=== PATIENT | female | born 1990 | race Caucasian/White ===

== ENCOUNTER 2022-09-23 11:21 | Emergency (ER) | payer OTHER ==
--- OUTSIDE RECORDS SUMMARY | 2022-09-23 11:30 | XMS REPORT | Continuity of Care Document ---
:1990 Author Organization [facility] t Address [address] [place] [address] Care Team Providers Name Role Phone Maria Dolores Rodriges Attending Clinician Unavailable Problems Condition Condition Condition Status Onset Resolution Last Treating Co mments Source Name Details Category Date Date Treatment Clinician Date [id number] Migraine Problem Comm on without Spirit aura and - [facility] migrainosu Medica l s, not Center intractabl e [id number] Reactive Problem Commo n depression [facility] [id number] Acquired Problem Comm on hypothyroi Spirit dism [facility] [id number] Pain in Problem Common left hip [facility] [id number] Positive Problem Comm on ANKUR Spirit [facility]in[facility] [id number] Fatigue, Problem Commo n unspecifie Spirit d type - [facility] [id number] Anxiety Problem [facility] [id number] Temperatur Problem Co mmon e Spirit intoleranc - [facility] e [facility] Allergies, Adverse Reactions, Alerts This patient has no known allergies or adverse reactions. Social History Social Habit Start Date Stop Date Quantity Comments Source History of Tobacco Use Co mmon Spirit [facility] Sex Assigned At Com mon [facility] Smoking Status Start Date Stop Date Source Never Smoker [facility] Current Smoker 2022-07-30 00:00:00 Common Spiri t - [facility] Medications Ordered Filled Start Stop Current Ordering Indication Dosage Frequency Signature Comments Components Source Medication Medication Date Date Medication? Clinician (SIG) Name Name REGISTERED HEALTH NURSE Thyroid REGISTERED HEALTH NURSE Thyroid No 1{table QD REGISTERED HEALTH NURSE Thyroid 15 MG 15 MG 209 t_on_an 15 MG 00:00: _empty_ 00 stomach } Levothyroxi Levothyroxi No QD Levothyrox ne Sodium ne Sodium 2-03 ine Sodium 25 MCG 25 MCG 00:00: 25 MCG 00 Levothyroxi Levothyroxi No QD Levothyrox ne Sodium ne Sodium 2-03 ine Sodium 25 MCG 25 MCG 00:00: 25 MCG 00 No Known No Known No Common Medications Medications [facility] Vital Signs Vital Name Observation Time Observation Value Comments Source height 2022-08-14 10:00:00 61.5 [in_i] [facility] weight 2022-08-14 10:00:00 137.2 [lb_av] [facility] temperature 2022-08-14 10:00:00 98.1 [degF] [facility] bmi 2022-08-14 10:00:00 25.5 kg/m2 [facility] oximetry 2022-08-14 10:00:00 100 % [facility] respiratory rate 2022-08-14 10:00:00 15 /min Comm on [facility] blood pressure 2022-08-14 10:00:00 120 mm[Hg] [facility] - systolic [facility] blood pressure 2022-08-14 10:00:00 64 mm[Hg] [facility] diastolic [facility] height 2022-07-30 09:00:00 61.5 [in_i] [facility] weight 2022-07-30 09:00:00 137 [lb_av] [facility] temperature 2022-07-30 09:00:00 97.2 [degF] [facility] bmi 2022-07-30 09:00:00 25.46 kg/m2 [facility] oximetry 2022-07-30 09:00:00 99 % Common S pirit [facility] respiratory rate 2022-07-30 09:00:00 16 /min Comm on [facility] blood pressure 2022-07-30 09:00:00 114 mm[Hg] Common [facility] - systolic [facility] blood pressure 2022-07-30 09:00:00 67 mm[Hg] Common [facility] - diastolic [facility] Procedures This patient has no known procedures. Encounters Start End Encounter Admission Attending Care Care Encounter Source Date/Time Date/Time Type Type Clinicians Facility Department ID 2022-09-11 Outpatient Antelmo, STLMLC STLMLC [id number] Common 10:46:02 Maria Dolores [id number] [facility] 2022-08-11 Outpatient Antelmo, STLMLC STLMLC [id number] Common 13:15:02 Maria Dolores [id number] [facility] 2022-07-30 Outpatient Antelmo, STMAYRALC STLMLC [id number] Common 08:15:03 Maria Dolores [id number] [facility] 2022-08-14 2022-08-14 OFFICE STLMLC STLMLC [id number] Co mmon 00:00:00 00:00:00 VISIT [facility] ESTAB PT - [facility] LEVEL 3 [facility] 2022-08-07 2022-08-07 (TEL) STLMLC STLMLC [id number] Co mmon 00:00:00 00:00:00 [facility] 2022-07-30 2022-07-30 OFFICE STLMLC STLMLC [id number] Co mmon 00:00:00 00:00:00 VISIT [facility] PT LEVEL 4 [facility] Results This patient has no known results.
--- NOTE | 2022-09-23 11:57 | EDPHYS ---
Physician Documentation [facility] Name: Melody Edward Age: 31 yrs Sex: Female : 1990 Arrival Date: 09/23/2022 Time: 11:24 Bed Treatment Private MD: ELIZABETH Physician Phu Butler HPI: 09/23 11:50 This 31 yrs old Female presents to ER via Unassigned with complaints of manuel Cough, Ear Pain, Sore Throat. 11:50 The patient or guardian reports cough, that is intermittent. Onset: The manuel symptoms/episode began/occurred 3 day(s) ago. Severity of symptoms: At their worst the symptoms were mild, in the emergency department the symptoms are unchanged. Modifying factors: The symptoms are alleviated by nothing, the symptoms are aggravated by nothing. The patient has experienced similar episodes in the past, a few times. - Family history:: not pertinent. ROS: 11:51 Constitutional: Negative for fever, chills, and weight loss, Eyes: Negative for injury, manuel pain, redness, and discharge, Neck: Negative for injury, pain, and swelling, Cardiovascular: Negative for chest pain, palpitations, and edema, Abdomen/GI: Negative for abdominal pain, nausea, vomiting, diarrhea, and constipation, Back: Negative for injury and pain, : Negative for injury, bleeding, discharge, and swelling, MS/Extremity: Negative for injury and deformity, Skin: Negative for injury, rash, and discoloration, Neuro: Negative for headache, weakness, numbness, tingling, and seizure, Psych: Negative for depression, anxiety, suicide ideation, homicidal ideation, and hallucinations, Allergy/Immunology: Negative for hives, rash, and allergies, Endocrine: Negative for neck swelling, polydipsia, polyuria, polyphagia, and marked weight changes, Hematologic/Lymphatic: Negative for swollen nodes, abnormal bleeding, and unusual bruising. 11:51 ENT: Positive for sore throat. 11:51 Respiratory: Positive for cough, with green sputum. Exam: 11:51 Constitutional: This is a well developed, well nourished patient who is awake, alert, manuel and in no acute distress. Head/Face: Normocephalic, atraumatic. Eyes: Pupils equal round and reactive to light, extra-ocular motions intact. Lids and lashes normal. Conjunctiva and sclera are non-icteric and not injected. Cornea within normal limits. Periorbital areas with no swelling, redness, or edema. Neck: Trachea midline, no thyromegaly or masses palpated, and no cervical lymphadenopathy. Supple, full range of motion without nuchal rigidity, or vertebral point tenderness. No Meningismus. Chest/axilla: Normal chest wall appearance and motion. Nontender with no deformity. No lesions are appreciated. Cardiovascular: Regular rate and rhythm with a normal S1 and S2. No gallops, murmurs, or rubs. Normal PMI, no JVD. No pulse deficits. Respiratory: Lungs have equal breath sounds bilaterally, clear to auscultation and percussion. No rales, rhonchi or wheezes noted. No increased work of breathing, no retractions or nasal flaring. Abdomen/GI: Soft, non-tender, with normal bowel sounds. No distension or tympany. No guarding or rebound. No evidence of tenderness throughout. Back: No spinal tenderness. No costovertebral tenderness. Full range of motion. MS/ Extremity: Pulses equal, no cyanosis. Neurovascular intact. Full, normal range of motion. Neuro: Awake and alert, GCS 15, oriented to person, place, time, and situation. Cranial nerves II-XII grossly intact. Motor strength 5/5 in all extremities. Sensory grossly intact. Cerebellar exam normal. Normal gait. Psych: Awake, alert, with orientation to person, place and time. Behavior, mood, and affect are within normal limits. 11:51 ENT: Posterior pharynx: Airway: normal, no evidence of obstruction, Tonsils: are normal in appearance, Uvula: normal, swelling, is not appreciated, erythema, is not appreciated, exudate, is not appreciated, peritonsillar mass, is not appreciated, pooling of secretions, is not appreciated. Vital Signs: 12:27 BP 126 / 79; Pulse 89; Resp 16; Temp 98.1; Pulse Ox 98% on R/A; iw MDM: 11:31 Patient medically screened. [facility] 11:51 Differential diagnosis: bronchitis, influenza, laryngitis, pharyngitis, tonsillitis, amnuel upper respiratory infection. Differential Diagnosis: Bronchitis Influenza Upper Respiratory Infection Pharyngitis Otitis Media Allergic Rhinitis Viral Syndrome Pneumonia. Data reviewed: vital signs, nurses notes, lab test result(s). Consideration of Admission/Observation Escalation of care including admission/observation considered. I considered the following discharge prescriptions or medication management in the emergency department Medications were administered in the Emergency Department. See MAR. Counseling: I had a detailed discussion with the patient and/or guardian regarding: the historical points, exam findings, and any diagnostic results supporting the discharge/admit diagnosis, lab results, the need for outpatient follow up, for definitive care, a family practitioner. 09/23 11:50 Order name: COVID-19/FLU A+B manuel 09/23 12:13 Order name: Strep iw Administered Medications: 12:27 Drug: AZITHromycin PO 500 mg Route: PO; iw 12:27 Drug: predniSONE PO 40 mg Route: PO; iw Disposition Summary: 09/23/22 11:56 Discharge Ordered Location: Home manuel Problem: new manuel Symptoms: have improved manuel Condition: Stable manuel Diagnosis - Acute pharyngitis, unspecified manuel - Acute upper respiratory infection, unspecified manuel Followup: manuel - With: Private Physician - When: 2 - 3 days - Reason: Recheck today's complaints, Continuance of care, Re-evaluation by your physician Discharge Instructions: - Discharge Summary Sheet manuel - Sore Throat manuel - Upper Respiratory Infection, Adult manuel - Cool Mist Vaporizer manuel - Upper Respiratory Infection, Adult, Twua-iq-Iovo manuel - Cough, Adult manuel Forms: - Medication Reconciliation Form manuel - Thank You Letter manuel - Antibiotic Education manuel - Prescription Opioid Use manuel Prescriptions: - albuterol sulfate 90 mcg/actuation Inhalation HFA Aerosol Inhaler - inhale 2 puff by INHALATION route every 4-6 hours as needed for bronchospasm; manuel administer via ventilator; 1 unit; Refills: 0, Product Selection Permitted - Uma-D 12 Hour 60-120 mg Oral Tablet Sustained Release 12 hr - take 1 tablet by ORAL route every 12 hours As needed; 20 tablet; Refills: 0, manuel Product Selection Permitted - Zithromax Z-Rashel 250 mg Oral Tablet - take 1 tablet by ORAL route as directed for 5 days Day 1 - take two (2) tablets manuel one time. Day 2, 3, 4 , 5 take one (1) tablet once daily.; 6 tablet; Refills: 0, Product Selection Permitted - Medrol (Rashel) 4 mg Oral Tablets, Dose Pack - take 1 tablet by ORAL route as directed - follow package instructions; 1 manuel packet; Refills: 0, Product Selection Permitted Signatures: Dispatcher [employer] Phu Ying MD MD cha Williams, Irene RN RN iw
[2022-09-23] MEDS ORDERED: predniSONE 20 MG TAB ONE (12:28)
[2022-09-23] MEDS ORDERED: AZITHROMYCIN 250 MG TAB ONE (12:28)
--- NOTE | 2022-09-23 12:28 | ER ---
Nurse's Notes [facility] Name: Melody Edward Age: 31 yrs Sex: Female : 1990 Arrival Date: 09/23/2022 Time: 11:24 Bed Treatment Private MD: Diagnosis: Acute pharyngitis, unspecified;Acute upper respiratory infection, unspecified Presentation: 09/23 12:27 Acuity: LENA 4 iw 12:27 Chief complaint: Patient states: cough, congestion X 3 days. Coronavirus screen: Client iw presents with at least one sign or symptom that may indicate coronavirus-19. Ebola Screen: Patient negative for fever greater than or equal to 101.5 degrees Fahrenheit, and additional compatible Ebola Virus Disease symptoms Patient denies exposure to infectious person. Patient denies travel to an Ebola-affected area in the 21 days before illness onset. No symptoms or risks identified at this time. Initial Sepsis Screen: Does the patient meet any 2 criteria? No. Patient's initial sepsis screen is negative. Does the patient have a suspected source of infection? No. Patient's initial sepsis screen is negative. Risk Assessment: Do you want to hurt yourself or someone else? Patient reports no desire to harm self or others. Onset of symptoms was September 23, 2022. 12:27 Method Of Arrival: Ambulatory iw Triage Assessment: 12:20 General: Appears in no apparent distress. Behavior is calm, cooperative. iw - Family history:: not pertinent. Screenin:27 [facility] ED Fall Risk Assessment (Adult) History of falling in the last 3 months, iw including since admission No falls in past 3 months (0 pts). Abuse screen: Denies threats or abuse. Denies injuries from another. Nutritional screening: No deficits noted. Tuberculosis screening: No symptoms or risk factors identified. Assessment: 12:20 General: Appears in no apparent distress. comfortable, Behavior is calm, cooperative. iw Pain: Complains of pain in throat. Neuro: Level of Consciousness is awake, alert, obeys commands, Oriented to person, place, time, situation. EENT: Throat is pink. Vital Signs: 12:27 BP 126 / 79; Pulse 89; Resp 16; Temp 98.1; Pulse Ox 98% on R/A; iw ED Course: 11:24 Patient arrived in ED. rg4 11:30 Phu Butler MD is Attending Physician. manuel 12:13 Erika Peña, RN is Primary Nurse. iw 12:20 Arm band placed on. iw 12:27 Triage completed. iw 12: No provider procedures requiring assistance completed. Patient did not have IV access iw during this emergency room visit. Administered Medications: 12:27 Drug: AZITHromycin PO 500 mg Route: PO; iw 12:27 Drug: predniSONE PO 40 mg Route: PO; iw Outcome: 11:56 Discharge ordered by . manuel 12: Discharged to home ambulatory. iw 12: Condition: good 12:27 Discharge instructions given to patient, Instructed on discharge instructions, follow up and referral plans. medication usage, Demonstrated understanding of instructions, follow-up care, medications, Prescriptions given X 4. 12:28 Patient left the ED. iw Signatures: Phu Butler MD MD cha Williams, Irene, RN RN Elizabeth Valenzuela rg4
[2022-09-23 13:18] LABS: SARS-COV-2 RT PCR NEGATIVE (NEGATIVE)
[2022-09-23 15:13] VITALS: BP 126/79; TEMP 98.1; O2SAT 98
== END 2022-09-23 12:28 | disposition home or self-care (01) ==
LOC: ER 11:21
DX: J06.9 Acute upper respiratory infection, unspecified (principal); J02.9 Acute pharyngitis, unspecified; Z20.822 Contact with and (suspected) exposure to COVID-19
CPT/HCPCS: 87070; 87081; 0240U; J7512; 99283